=== PATIENT | male | born 1960 | race Caucasian/White ===

== ENCOUNTER 2019-04-24 18:23 | Emergency (ER) | payer BC, OTHER ==
[2019-04-24] MEDS ORDERED: Proparacaine 0.5% Ophth Soln 15 ML Bottle EYELF PRN (18:42)
[2019-04-24] MEDS ORDERED: Fluorescein 1 MG Ophth Strip EYELF ONE (18:42)
[2019-04-24] MEDS ORDERED: Proparacaine 0.5% Ophth Soln 15 ML Bottle ONE (18:52)
--- NOTE | 2019-04-24 19:25 | EDM.PDOC ---
ED HPI GENERAL MEDICAL PROBLEM - General Chief Complaint: Eye Problems Time Seen by Provider: 04/24/19 18:50 Source of Information: Reports: Patient, Other History Limitations: Reports: No Limitations - History of Present Illness INITIAL COMMENTS - FREE TEXT/NARRATIVE: Patient was working. The patient then got some ricci in his right eye. This did cause an abrasion. I was able to remove some of the set from his eye. I believe that he keeps it hydrated that it will heal quickly. The patient may benefit from a antibiotic if infection does present itself. I did stain the eye and we didn't see abrasions about the lower hemisphere of the cornea and these were relatively deep and broad. He was wearing safety glasses. Onset: Today Duration: Getting Worse Location: Reports: Face Severity: Mild Associated Symptoms: Reports: No Other Symptoms - Related Data Allergies Allergy/AdvReac Type Severity Reaction Status Date / Time No Known Allergies Allergy Verified 11/26/13 11:40 Home Meds: Home Meds Aspirin [Adan Chewable] 81 mg PO DAILY 11/26/13 [History] Multivitamin [Multi Vitamin Daily] 1 tab PO DAILY 11/26/13 [History] Ranitidine HCl [Zantac 75] 75 mg PO BID 11/26/13 [History] metFORMIN [metFORMIN XR] 500 mg PO DAILY 11/26/13 [History] Enalapril Maleate 10 mg PO DAILY 12/18/15 [History] Simvastatin [Zocor] 20 mg PO BEDTIME 12/18/15 [History] Past Medical History Cardiovascular History: Reports: Hypertension Respiratory History: Reports: Sleep Apnea Gastrointestinal History: Reports: GERD Genitourinary History: Reports: None Musculoskeletal History: Reports: Back Pain, Chronic Psychiatric History: Reports: None Endocrine/Metabolic History: Reports: Diabetes, Type II Hematologic History: Reports: None Immunologic History: Reports: None Oncologic (Cancer) History: Reports: None Dermatologic History: Reports: None - Past Surgical History Cardiovascular Surgical History: Reports: None GI Surgical History: Reports: None Musculoskeletal Surgical History: Reports: None ED ROS GENERAL - Review of Systems Review Of Systems: ROS reveals no pertinent complaints other than HPI. ED EXAM GENERAL W FULL EYE - Physical Exam Exam: See Below Exam Limited By: No Limitations General Appearance: Alert Eye Exam: Right Eye: Conjunctival Injection, Corneal Abrasion, Foreign Body, Left Eye: Normal Inspection, Bilateral Eye: EOMI, PERRL Eyelids: Right: Erythema, Foreign Body, Left: Normal Appearance Conjunctiva & Sclera: Right: Foreign Body, Injected, Left: Normal Appearance Cornea Exam: Right: Corneal Abrasion, Examined with Flourescein, Left: Normal Appearance Extraocular Movements: Bilateral: Intact Pupillary Size: Bilateral: 4 mm Pupillary Reaction: Bilateral: Brisk Respiratory/Chest: No Respiratory Distress, Lungs Clear, Normal Breath Sounds, No Accessory Muscle Use, Chest Non-Tender Cardiovascular: Normal Peripheral Pulses, Regular Rate, Rhythm, No Edema, No Gallop, No JVD, No Murmur, No Rub Course - Orders/Labs/Meds Orders: Active Orders 24 hr Category Date Time Status Proparacaine [Proparacaine 0.5% Ophth Soln] Med 04/24/19 18:42 Active 1 ml EYELF ASDIRECTED PRN Medication Orders Proparacaine HCl (Proparacaine 0.5% Ophth Soln) 1 ml EYELF ASDIRECTED PRN PRN Reason: Other Last Admin: 04/24/19 18:49 Dose: 1 drop Meds: Medications Generic Name Dose Route Start Last Admin Trade Name Freq PRN Reason Stop Dose Admin Proparacaine HCl 1 ml 04/24/19 18:42 04/24/19 18:49 Proparacaine 0.5% Ophth Soln EYELF 1 drop ASDIRECTED PRN Administration Other Discontinued Medications Generic Name Dose Route Start Last Admin Trade Name Freq PRN Reason Stop Dose Admin Fluorescein Sodium 1 mg 04/24/19 18:42 04/24/19 18:50 Ful-Ana EYELF 04/24/19 18:43 1 mg ONETIME ONE Administration Proparacaine HCl Confirm 04/24/19 18:52 Proparacaine 0.5% Ophth Soln Administered 04/24/19 18:53 Dose 15 ml .ROUTE .STK-MED ONE Departure - Departure Time of Disposition: 19:24 Disposition: Home, Self-Care 01 Condition: Good Clinical Impression: Corneal abrasion Qualifiers: Encounter type: initial encounter Laterality: right Qualified Code(s): S05.01XA - Injury of conjunctiva and corneal abrasion without foreign body, right eye, initial encounter - Discharge Information *PRESCRIPTION DRUG MONITORING PROGRAM REVIEWED*: Not Applicable *COPY OF PRESCRIPTION DRUG MONITORING REPORT IN PATIENT SURESH: Not Applicable Instructions: Corneal Abrasion Referrals: Tarah De La Paz DO [Primary Care Provider] - Forms: ED Return to Work/School Form Additional Instructions: Keep hydrated with ultra-systane over the counter eye drop. Anticipate recovery in next 36 hours. May have to wear sunglasses outside to protect eye. Return if needed or blurry vision does not improve. - My Orders Last 24 Hours: My Active Orders 04/24/19 18:42 Proparacaine [Proparacaine 0.5% Ophth Soln] 1 ml EYELF ASDIRECTED PRN - Assessment/Plan Last 24 Hours: My Active Orders 04/24/19 18:42 Proparacaine [Proparacaine 0.5% Ophth Soln] 1 ml EYELF ASDIRECTED PRN
[2019-04-24 19:29] VITALS: BP 134/81
== END 2019-04-24 19:25 | disposition home or self-care (01) ==
LOC: VM.ED 18:23
DX: T15.11XA Foreign body in conjunctival sac, right eye, initial encounter (principal); I10 Essential (primary) hypertension; E11.9 Type 2 diabetes mellitus without complications; Z79.82 Long term (current) use of aspirin; Z79.84 Long term (current) use of oral hypoglycemic drugs; Z79.899 Other long term (current) drug therapy; X58.XXXA Exposure to other specified factors, initial encounter
CPT/HCPCS: 65205; 99283